=== PATIENT | female | born 1995 | race Caucasian/White ===

== ENCOUNTER → 2023-11-28 | Outpatient (REF) | payer OTHER | LOC: M LAB REF 13:33 | PROVIDERS: ATTEND Nurse Practitioner Family | DX: R10.9 Unspecified abdominal pain (principal) ==

== ENCOUNTER → 2023-12-12 | Outpatient (CLI) | payer OTHER ==
[~2023-12-12] MED LIST: GASTROGRAFIN SOLUTION 30ML As Ordered ONE; ISOVUE-370 76% 100ML VIAL As Ordered ONE
== END ==
LOC: EDUNIT# 12-07 15:00 → M RAD 14:49
PROVIDERS: ATTEND Nurse Practitioner Family
DX: R10.9 Unspecified abdominal pain (principal)

== ENCOUNTER 2024-03-13 14:43 | Day surgery (SDC) | payer OTHER ==
[~2024-03-13] VITALS: Ht 162.6 cm; Wt 88.5 kg
[~2024-03-13 14:43] MED LIST changes: +ETON68IM SC; -GASTROGRAFIN SOLUTION 30ML As Ordered ONE; +IBUP-1022 PO; -ISOVUE-370 76% 100ML VIAL As Ordered ONE; +OMEP-173 PO
[2024-03-13] MEDS ORDERED: NS 1,000 ML IV SCH ×2 (15:35→19:00)
[2024-03-13 15:57] LABS: INR 0.91; PARTIAL THROMBOPLASTIN TIME 27.9 SECONDS (24.8-34.2); PROTHROMBIN TIME 12.5 SECONDS (12.5-14.5)
[2024-03-13 16:10] LABS: BLOOD UREA NITROGEN 11 MG/DL (9-23); CALCIUM LEVEL 9.5 MG/DL (8.5-10.1); CARBON DIOXIDE LEVEL 26 MMOL/L (20-31); CHLORIDE LEVEL 109 MMOL/L (98-107); CREATININE FOR GFR 0.91 MG/DL (0.55-1.30); GLOMERULAR FILTRATION RATE > 60.0 (>60); GLUCOSE, FASTING 88 MG/DL (60-100); POTASSIUM SERUM 3.8 MMOL/L (3.5-5.1); SODIUM LEVEL 142 MMOL/L (136-145)
[2024-03-13] MEDS ORDERED: LIDOCAINE 2% 100MG/5ML SDV (FOR ANES.) As Ordered ONE (16:44)
[2024-03-13] MEDS ORDERED: ROCURONIUM BROMIDE 50MG/5ML VIAL As Ordered ONE (16:44)
[2024-03-13] MEDS ORDERED: MIDAZOLAM INJ 2MG/2ML VIAL As Ordered ONE (16:44)
[2024-03-13] MEDS ORDERED: ONDANSETRON 4MG 2ML VIAL As Ordered ONE (16:44)
[2024-03-13] MEDS ORDERED: propofoL 200 MG/20 ML VIAL As Ordered ONE (16:44)
[2024-03-13] MEDS ORDERED: fentaNYL 100 MCG/2 ML INJECTION As Ordered ONE (16:44)
[2024-03-13] MEDS ORDERED: SUGAMMADEX SODIUM 500 MG/5 ML VIAL (BRIDION) As Ordered ONE (16:45)
[2024-03-13] MEDS ORDERED: ACETAMINOPHEN 1000MG/100ML IV BAG As Ordered ONE (16:45)
[2024-03-13] MEDS ORDERED: KETOROLAC 60MG 2ML VIAL As Ordered ONE (16:49)
[2024-03-13] MEDS: ceFAZolin SOD 2 GM in IV 1 EA IV ONE (17:58)
[2024-03-13] MEDS: HEPARIN SOD (PORCINE) 5000UNITS/ML 1ML VIAL/SYRINGE SQ ONE (18:14)
[2024-03-13] MEDS ORDERED: ESMOLOL INJ 100MG/10ML VIAL As Ordered ONE (18:37)
[2024-03-13] MEDS ORDERED: HYDROMORPHONE HCL 0.5 MG/ 0.5 ML SYRINGE IV PRN (19:00)
[2024-03-13] MEDS ORDERED: diphenhydrAMINE 50MG/ML VIAL As Ordered ONE (19:19)
[2024-03-13] MEDS: ONDANSETRON 4MG 2ML VIAL IV PRN (19:29)
[2024-03-13] MEDS: diphenhydrAMINE 50MG/ML VIAL IV PRN (19:30)
[2024-03-13] MEDS: fentaNYL 100 MCG/2 ML INJECTION IV PRN (19:37)
[2024-03-13] MEDS: oxyCODONE 5MG TAB PO PRN (19:37)
[2024-03-13 20:44] VITALS: BP 130/83; TEMP 97.9; O2SAT 100
== END 2024-03-13 20:51 | disposition home or self-care (01) ==
LOC: M SDC 14:43
PROVIDERS: ATTEND Surgery
DX: K80.20 Calculus of gallbladder without cholecystitis without obstruction (principal); Z88.5 Allergy status to narcotic agent; Z91.048 Other nonmedicinal substance allergy status; Z79.899 Other long term (current) drug therapy
CPT/HCPCS: 36415; 47563; 80048; 81025; 85610; 85730; 88304; J0131; J0665; J0690; J1100; J1200; J1805; J1885; J2250; J2405; J3010; S2900